=== PATIENT | male | born 1940 | race Caucasian/White ===

== ENCOUNTER → 2016-11-30 | Outpatient (REF) | payer MEDICARE, MEDICAID ==
[~2016-11-30] MED LIST: /PROC25SU PR; ACET-654 PO; ALDA25TA2 PO; ARTIDRO OU; BARRIER CREAM TOP; BISAPOW4 PR; CARB25TA PO; CELE10TA PO; DOCU100C PO; ENEMENE3 PR; ERYT25TA PO; FIBEPOW11 PO; FURO40TA2 PO; HALO0.5T PO; K-TA10TA PO; LACROIN OU; LASI80TA PO; MICR10CA PO; MILK2400 PO; MIRA255PW PO; MULTIVITAMIN/MINERAL PO; OCEA0.65; SALI0.653; SENO8.6T9 PO; SENOKOT PO; SERO50TA PO; TEARS AGAIN OU; ZANT150T PO
== END | disposition home or self-care (01) ==
PROVIDERS: ATTEND Internal Medicine
DX: E11.9 Type 2 diabetes mellitus without complications (principal)

== ENCOUNTER → 2017-02-23 | Outpatient (REF) | payer MEDICARE, MEDICAID ==
[2017-02-23 11:09] LABS: MEAN CORPUSCULAR HEMOGLOBIN 31.2 pg (27.0-33.0); MEAN CORPUSCULAR HGB CONC 32.9 g/dl (32.0-36.5); MEAN CORPUSCULAR VOLUME 94.9 fl (80.0-96.0); RED CELL DISTRIBUTION WIDTH 13.2 % (11.5-14.5)
== END ==
PROVIDERS: ATTEND Internal Medicine
DX: G20 Parkinson's disease (principal)

== ENCOUNTER → 2017-03-24 | Outpatient (REF) | payer MEDICARE, MEDICAID ==
[2017-03-24 11:41] LABS: ALBUMIN 2.7 GM/DL (3.2-5.2); ALBUMIN/GLOBULIN RATIO 0.61 (1.00-1.93); BILIRUBIN,TOTAL 0.5 MG/DL (0.2-1.0); CREATININE FOR GFR 1.41 MG/DL (0.70-1.30); GLOMERULAR FILTRATION RATE 51.8 (>42); POTASSIUM SERUM 4.1 MEQ/L (3.5-5.1); TOTAL PROTEIN 7.1 GM/DL (6.4-8.2)
== END ==
PROVIDERS: ATTEND Internal Medicine
DX: G20 Parkinson's disease (principal)